=== PATIENT | male | born 1980 | race African-American/Black ===

== ENCOUNTER 2021-03-26 17:10 | Inpatient (IN) | payer OTHER ==
[2021-03-26 17:59] LABS: #Basophils 0.1 10x3/uL (0.0-0.2); #Eosinphils 0.1 10x3/uL (0.0-0.5); #Monocytes 0.6 10x3/uL (0.0-1.1); #Neutrophils 4.5 10x3/uL (1.5-8.4); %Basophils 1.6 % (0.0-2.0); %Eosinophils 1.3 % (0.0-6.0); %Lymphocytes 27.6 % (18.0-47.0); %Monocytes 7.4 % (0.0-10.0); %Neutrophils 59.3 % (40.0-75.0); Hemoglobin 17.1 g/dL (13.5-17.5); Mean Corpuscular HGB CONC 34.5 g/dL (32.0-36.0); Mean Corpuscular Hemoglobin 27.5 pg (27.0-33.0); Mean Corpuscular Volume 79.7 fl (81.2-95.1); Mean Platelet Volume 9.9 fl (7.4-10.4); Platelet Count 230 10x3/uL (150-450); RBC Distribution Width 14.7 % (11.5-14.5); Red Blood Cell (RBC) Count 6.22 10x6/uL (4.32-5.72); White Blood Cell (WBC) Count 7.5 10x3/uL (3.5-10.5)
[2021-03-26] MEDS ORDERED: Ketorolac Tromethamine 30 MG/ML VIAL ONE (18:07)
[2021-03-26 18:11] LABS: ALT (SGPT) 112 U/L (8-55); AST (SGOT) 54 U/L (5-34); Albumin 4.5 g/dL (3.5-5.0); Alkaline Phosphatase 112 U/L (40-110); Anion Gap 15 mmol/L (10-20); BUN (Urea Nitrogen) 11 mg/dL (8.9-20.6); Bilirubin, Total 0.7 mg/dL (0.2-1.2); Calc. Creatinine Clearance 0 mL/min (70-130); Calcium 9.8 mg/dL (7.8-10.44); Carbon Dioxide 25 mmol/L (22-29); Chloride 107 mmol/L (98-107); Globulin 3.2 g/dL (2.4-3.5); Glucose 91 mg/dL (70-105); Potassium 4.1 mmol/L (3.5-5.1); Protein, Total 7.7 g/dL (6.0-8.3); Sodium 143 mmol/L (136-145)
[2021-03-26 18:58] LABS: Bilirubin Neg (Negative); Blood, Urine 250 (Negative); Clarity Clear (Clear); Glucose, Urine (Dipstick) Normal (Negative); Ketone, Urine Negative (Negative); Leukocyte 25 (Negative); Nitrite Negative (Negative); Protein, Urine (Dipstick) 30 mg/dl (Neg-Trace); Urobilinogen Normal mg/dL (Less than 2)
[2021-03-26 19:14] LABS: Squamous Epithelial 0-3 HPF (0-3)
[2021-03-26 19:15] LABS: Bacteria/HPF 1+ HPF (None Seen); Mucous/LPF Rare LPF (<2+); Sperm/HPF 1+ HPF (None Seen)
[2021-03-26] MEDS ORDERED: Morphine 4 MG/ML VIAL ONE (20:08)
[2021-03-26] MEDS ORDERED: Ondansetron PF 4 MG/2 ML Vial ONE (20:08)
[2021-03-26] MEDS ORDERED: cefTRIAXone\\ROCEPHIN 1 GM VIAL ONE (20:18)
[2021-03-26] MEDS ORDERED: Levofloxacin 500 mg/D5W 100 ml Premix Bag ONE (21:13)
[2021-03-26 21:43] LABS: SARS-CoV-2 NAA Rapid Test Not Detected (NotDetected)
[2021-03-26 22:41] VITALS: BMI 28.7
[2021-03-26] MEDS ORDERED: Morphine 4 MG/ML VIAL SLOW IVP PRN (22:52)
[2021-03-26] MEDS ORDERED: Ondansetron ODT 4 MG TAB PO PRN (22:52)
[2021-03-26] MEDS ORDERED: Acetaminophen 325 MG TAB PO PRN (22:53)
[2021-03-26] MEDS ORDERED: Ondansetron PF 4 MG/2 ML Vial IVP PRN (22:54)
[2021-03-26] MEDS: Sodium Chloride 0.9% 1,000 ML IV SCH (23:25)
[2021-03-27] MEDS ORDERED: Guaifenesin DM 100-10/5 ML UDCUP PO PRN (01:40)
[2021-03-27] MEDS ORDERED: Zolpidem Tartrate 5 MG TAB PO PRN (01:40)
[2021-03-27] MEDS ORDERED: Calcium Carbonate 500 MG ChewTAB PO PRN (01:40)
[2021-03-27] MEDS ORDERED: Senokot S 8.6-50 MG TAB PO PRN (01:40)
[2021-03-27] MEDS ORDERED: Vancomycin 1.5 GRAM/300 ML BAG 1.5 GM in Premix Bag 1 BAG IVPB SCH (02:15)
[2021-03-27] MEDS: Nicotine 21 MG PATCH TD SCH ×2 (02:46→03:01)
[2021-03-27 04:14] LABS: #Basophils 0.1 10x3/uL (0.0-0.2); #Eosinphils 0.1 10x3/uL (0.0-0.5); #Monocytes 1.1 10x3/uL (0.0-1.1); #Neutrophils 7.2 10x3/uL (1.5-8.4); %Basophils 0.5 % (0.0-2.0); %Lymphocytes 24.2 % (18.0-47.0); %Monocytes 9.5 % (0.0-10.0); %Neutrophils 63.7 % (40.0-75.0); Hemoglobin 14.9 g/dL (13.5-17.5); Mean Corpuscular HGB CONC 33.8 g/dL (32.0-36.0); Mean Corpuscular Hemoglobin 26.9 pg (27.0-33.0); Mean Corpuscular Volume 79.7 fl (81.2-95.1); Mean Platelet Volume 10.3 fl (7.4-10.4); Platelet Count 214 10x3/uL (150-450); RBC Distribution Width 13.4 % (11.5-14.5); Red Blood Cell (RBC) Count 5.53 10x6/uL (4.32-5.72); White Blood Cell (WBC) Count 11.3 10x3/uL (3.5-10.5)
[2021-03-27 04:28] LABS: ALT (SGPT) 86 U/L (8-55); AST (SGOT) 39 U/L (5-34); Albumin 3.6 g/dL (3.5-5.0); Alkaline Phosphatase 74 U/L (40-110); Anion Gap 11 mmol/L (10-20); BUN (Urea Nitrogen) 9 mg/dL (8.9-20.6); Bilirubin, Total 0.9 mg/dL (0.2-1.2); Calc. Creatinine Clearance 104 mL/min (70-130); Calcium 8.7 mg/dL (7.8-10.44); Carbon Dioxide 22 mmol/L (22-29); Chloride 109 mmol/L (98-107); Globulin 2.4 g/dL (2.4-3.5); Glucose 85 mg/dL (70-105); Lipase 102 U/L (8-78); Potassium 3.9 mmol/L (3.5-5.1); Sodium 138 mmol/L (136-145)
[2021-03-27] MEDS: Sodium Chloride 0.9% 1,000 ML IV SCH ×2 (06:22→19:30)
[2021-03-27] MEDS ORDERED: Iopamidol 30 ML ONE (08:32)
[2021-03-27] MEDS: Famotidine/PF 20 mg/2ml Vial SLOW IVP SCH ×2 (08:45→20:23)
[2021-03-27] MEDS ORDERED: Lidocaine 1% PF 5 ML VIAL ONE (12:46)
[2021-03-27] MEDS ORDERED: Fentanyl 100 MCG/2 ML VIAL ONE (12:46)
[2021-03-27] MEDS ORDERED: PROPOFOL 0 ML ONE (12:46)
[2021-03-27] MEDS ORDERED: Ondansetron PF 4 MG/2 ML Vial ONE (12:48)
[2021-03-27] MEDS ORDERED: Dexamethasone 4 mg/ml Vial ONE (12:48)
[2021-03-27] MEDS ORDERED: Midazolam HCl 2 mg/2 ml Vial ONE (13:15)
[2021-03-27] MEDS ORDERED: PROPOFOL 20 ML ONE (13:31)
[2021-03-27] MEDS ORDERED: PHENYLEPHRINE-NS 100 MCG/ML 10 ML SYRINGE ONE (14:03)
[2021-03-27] MEDS ORDERED: ePHEDrine 50 MG/ML VIAL ONE (14:08)
[2021-03-27] MEDS ORDERED: Bisacodyl 10 MG SUPP PR PRN (14:23)
[2021-03-27] MEDS ORDERED: diphenhydrAMINE 50 MG/ML VIAL IVP PRN (14:23)
[2021-03-27] MEDS ORDERED: Phenazopyridine HCl 97.5 MG TABLET ONE (14:45)
[2021-03-27] MEDS: HYDROcodone/Acetaminophen 5/325 mg Tablet PO PRN ×2 (17:30→21:47)
[2021-03-27] MEDS: Docusate 100 MG CAP PO SCH (20:24)
[2021-03-27] MEDS ORDERED: Enoxaparin Sodium 40 MG/0.4 ML SYRINGE SC SCH (21:00)
[2021-03-28] MEDS: HYDROcodone/Acetaminophen 5/325 mg Tablet PO PRN ×3 (01:33→20:58)
[2021-03-28] MEDS: Oxybutynin 5 MG TAB PO PRN ×3 (01:34→20:58)
[2021-03-28] MEDS: Nicotine 21 MG PATCH TD SCH (02:51)
[2021-03-28] MEDS: Sodium Chloride 0.9% 1,000 ML IV SCH ×2 (04:58→15:47)
[2021-03-28 05:58] LABS: Anion Gap 12 mmol/L (10-20); BUN (Urea Nitrogen) 9 mg/dL (8.9-20.6); Calc. Creatinine Clearance 115 mL/min (70-130); Calcium 9.2 mg/dL (7.8-10.44); Carbon Dioxide 24 mmol/L (22-29); Chloride 109 mmol/L (98-107); Glucose 97 mg/dL (70-105); Potassium 4.5 mmol/L (3.5-5.1); Sodium 140 mmol/L (136-145)
[2021-03-28 06:10] LABS: #Monocytes 0.8 10x3/uL (0.0-1.1); #Neutrophils 8.3 10x3/uL (1.5-8.4); %Basophils 0.3 % (0.0-2.0); %Lymphocytes 12.6 % (18.0-47.0); %Monocytes 7.3 % (0.0-10.0); %Neutrophils 78.9 % (40.0-75.0); Hemoglobin 14.6 g/dL (13.5-17.5); Mean Corpuscular HGB CONC 33.2 g/dL (32.0-36.0); Mean Corpuscular Hemoglobin 26.9 pg (27.0-33.0); Mean Platelet Volume 10.7 fl (7.4-10.4); Platelet Count 211 10x3/uL (150-450); RBC Distribution Width 13.8 % (11.5-14.5); Red Blood Cell (RBC) Count 5.43 10x6/uL (4.32-5.72); White Blood Cell (WBC) Count 10.5 10x3/uL (3.5-10.5)
[2021-03-28] MEDS: Tamsulosin HCl 0.4 MG CAP PO SCH (08:39)
[2021-03-28] MEDS: Docusate 100 MG CAP PO SCH ×2 (08:39→20:58)
[2021-03-28] MEDS: Famotidine/PF 20 mg/2ml Vial SLOW IVP SCH ×2 (08:39→21:00)
[2021-03-28] MEDS: Phenazopyridine HCl 97.5 MG TABLET PO PRN ×2 (08:42→20:57)
[2021-03-29] MEDS: Nicotine 21 MG PATCH TD SCH (02:56)
[2021-03-29] MEDS: Sodium Chloride 0.9% 1,000 ML IV SCH ×2 (06:16→17:49)
[2021-03-29 07:14] LABS: #Basophils 0.1 10x3/uL (0.0-0.2); #Eosinphils 0.1 10x3/uL (0.0-0.5); #Monocytes 0.7 10x3/uL (0.0-1.1); #Neutrophils 4.7 10x3/uL (1.5-8.4); %Basophils 0.8 % (0.0-2.0); %Eosinophils 1.1 % (0.0-6.0); %Lymphocytes 38.3 % (18.0-47.0); %Monocytes 7.6 % (0.0-10.0); %Neutrophils 50.9 % (40.0-75.0); Hemoglobin 14.2 g/dL (13.5-17.5); Mean Corpuscular HGB CONC 33.5 g/dL (32.0-36.0); Mean Corpuscular Volume 80.8 fl (81.2-95.1); Mean Platelet Volume 10.6 fl (7.4-10.4); Platelet Count 209 10x3/uL (150-450); RBC Distribution Width 13.7 % (11.5-14.5); Red Blood Cell (RBC) Count 5.25 10x6/uL (4.32-5.72); White Blood Cell (WBC) Count 9.3 10x3/uL (3.5-10.5)
[2021-03-29 07:28] LABS: Anion Gap 12 mmol/L (10-20); BUN (Urea Nitrogen) 12 mg/dL (8.9-20.6); Calc. Creatinine Clearance 121 mL/min (70-130); Calcium 8.6 mg/dL (7.8-10.44); Carbon Dioxide 21 mmol/L (22-29); Chloride 110 mmol/L (98-107); Glucose 89 mg/dL (70-105); Sodium 139 mmol/L (136-145)
[2021-03-29] MEDS: Tamsulosin HCl 0.4 MG CAP PO SCH (08:26)
[2021-03-29] MEDS: Docusate 100 MG CAP PO SCH ×2 (08:27→21:10)
[2021-03-29] MEDS: HYDROcodone/Acetaminophen 5/325 mg Tablet PO PRN ×2 (08:27→21:28)
[2021-03-29] MEDS: Famotidine/PF 20 mg/2ml Vial SLOW IVP SCH ×2 (08:27→21:11)
[2021-03-29] MEDS: Phenazopyridine HCl 97.5 MG TABLET PO PRN (08:28)
[2021-03-29] MEDS: Oxybutynin 5 MG TAB PO PRN (08:29)
[2021-03-30] MEDS: Nicotine 21 MG PATCH TD SCH (04:44)
[2021-03-30] MEDS: Tamsulosin HCl 0.4 MG CAP PO SCH (08:00)
[2021-03-30] MEDS: Docusate 100 MG CAP PO SCH (08:00)
[2021-03-30] MEDS: Sodium Chloride 0.9% 1,000 ML IV SCH (08:00)
[2021-03-30] MEDS: Famotidine/PF 20 mg/2ml Vial SLOW IVP SCH (08:00)
[2021-03-30] MEDS: HYDROcodone/Acetaminophen 5/325 mg Tablet PO PRN (08:12)
[2021-03-30] MEDS: Oxybutynin 5 MG TAB PO PRN (10:59)
[2021-03-30] MEDS: Phenazopyridine HCl 97.5 MG TABLET PO PRN (10:59)
[2021-03-30 15:36] VITALS: BP 115/72; TEMP 97.9
== END 2021-03-30 22:47 | disposition home or self-care (01) | DRG 661 ==
LOC: CSHERS 17:10 → UNDOADMIN 21:59 → CSHTELE 21:59
PROVIDERS: ADMIT Student in an Organized Health Care Education/Training Program; ATTEND Internal Medicine
PROC: 0T768ZZ Dilation of Right Ureter, Via Natural or Artificial Opening Endoscopic (ICD-10-PCS; principal; 2021-03-27)
PROC: BT1DZZZ Fluoroscopy of Right Kidney, Ureter and Bladder (ICD-10-PCS; 2021-03-27)
PROC: 0T7D8ZZ Dilation of Urethra, Via Natural or Artificial Opening Endoscopic (ICD-10-PCS; 2021-03-27)
DX: N13.6 Pyonephrosis (principal); Z20.822 Contact with and (suspected) exposure to COVID-19; F17.210 Nicotine dependence, cigarettes, uncomplicated; N17.9 Acute kidney failure, unspecified; F12.10 Cannabis abuse, uncomplicated; Z71.6 Tobacco abuse counseling; R31.29 Other microscopic hematuria; R79.89 Other specified abnormal findings of blood chemistry; N35.911 Unspecified urethral stricture, male, meatal
CPT/HCPCS: 36415; 51600; 74176; 74430; 80048; 80053; 81003; 81015; 83690; 85025; 87086; 96365; 96367; 96375; C2617; J0696; J1100; J1885; J1956; J2250; J2270; J2405; J2704; J3010; J3370; J3490; J7050; Q9967; S0028; U0002